=== PATIENT | female | born 1960 | race Asian ===

== ENCOUNTER 2019-10-23 09:41 | Emergency (ER) | payer MEDICAID, OTHER ==
[2019-10-23 09:49] VITALS: BP 166/73
[2019-10-23] MEDS ORDERED: SILVER SULFADIAZINE 1 % TOPICAL CREAM 50GM TOP ONE (10:15)
[2019-10-23] MEDS ORDERED: ACETAMINOPHEN 325 MG TAB PO ONE (10:15)
== END 2019-10-23 10:53 | disposition home or self-care (01) ==
LOC: ER 09:46
DX: T22.211A Burn of second degree of right forearm, initial encounter (principal); T23.171A Burn of first degree of right wrist, initial encounter; T31.0 Burns involving less than 10% of body surface; X10.0XXA Contact with hot drinks, initial encounter; Y93.89 Activity, other specified; Y92.090 Kitchen in other non-institutional residence as the place of occurrence of the external cause; Y99.8 Other external cause status
CPT/HCPCS: 16020

== ENCOUNTER 2020-02-12 19:10 | Emergency (ER) | payer MEDICAID, OTHER ==
[~2020-02-12] VITALS: Ht 157.5 cm; Wt 59.0 kg
[2020-02-12] MEDS ORDERED: methylPREDNISolone SOD SUCC 125 MG/2 ML VL IV ONE (19:30)
[2020-02-12 20:23] LABS: Basophils # (auto) 0 10 ^3/uL (0-0.2); Basophils % (auto) 0.3 % (0.0-2.0); Eosinophils # (auto) 0.1 10 ^3/uL (0-0.8); Eosinophils % (auto) 2.2 % (0.0-7.0); Hematocrit 35.4 % (36.0-46.0); Hemoglobin 12.1 g/dL (12.2-16.2); Lymphocytes # (auto) 1.1 10 ^3/uL (0.4-5.4); Mean Corpuscular Hemoglobin 33.4 pg (28.0-32.0); Mean Corpuscular Hgb Conc. 34.1 g/dL (32.0-36.0); Mean Corpuscular Volume 98.1 fL (80.0-100.0); Monocytes # (auto) 0.3 10 ^3/uL (0-1.3); Monocytes % (auto) 7.6 % (0.0-12.0); Neutrophils # (auto) 2.8 10 ^3/uL (1.6-8.6); Neutrophils % (auto) 63.9 % (37.0-80.0); Platelet Count (auto) 316 10^3/uL (140-450); Red Blood Cells 3.61 10^6/uL (4.0-5.20); Red Cell Distribution Width 12.3 % (11.8-14.3); White Blood Cell 4.4 10^3/uL (4.4-10.8)
[2020-02-12 20:33] LABS: INR 0.95 (0.9-1.15); Partial Thromboplastin Time 29.3 sec (23.64-32.05)
[2020-02-12 20:34] LABS: Alanine Aminotransferase 16 U/L (13-56); Albumin 3.4 g/dL (3.4-5.0); Anion Gap 9 (5-15); Aspartate Aminotransferase 16 U/L (15-37); BUN/Creatinine Ratio 11.7; Blood Urea Nitrogen 9 mg/dL (7-18); Calcium 8.8 mg/dL (8.5-10.1); Carbon Dioxide 24 mmol/L (21-32); Chloride 97 mmol/L (98-107); GFR African American 98 mL/min; GFR Non-African American 81 mL/min; Glucose 161 mg/dL (74-106); Magnesium 1.9 mg/dL (1.6-2.6); Potassium 4.2 mmol/L (3.5-5.1); Sodium 130 mmol/L (136-145)
[2020-02-12 20:39] LABS: Alkaline Phosphatase 73 U/L (45-117); Bilirubin, Total 0.2 mg/dL (0.2-1.0); Total Protein 8.2 g/dL (6.4-8.2)
[2020-02-13 01:00] VITALS: BP 109/58
== END 2020-02-13 01:18 | disposition home or self-care (01) ==
LOC: ER 19:10 → EDBD 19:10 → EDUNIT# 19:10 → ER 02-13 01:18
DX: J98.01 Acute bronchospasm (principal); G89.22 Chronic post-thoracotomy pain; E11.9 Type 2 diabetes mellitus without complications; I10 Essential (primary) hypertension
CPT/HCPCS: 36415; 71046; 71250; 80053; 83735; 83880; 84484; 85025; 85379; 85610; 85730; 93005; 96374; 99285; J2930

== ENCOUNTER 2020-08-18 21:17 | Inpatient (IN) | payer MEDICAID ==
[~2020-08-18] VITALS: Ht 162.6 cm; Wt 45.4 kg
[2020-08-18 22:29] LABS: Basophils # (auto) 0 10 ^3/uL (0-0.2); Eosinophils # (auto) 0.1 10 ^3/uL (0-0.8); Hemoglobin 10.8 g/dL (12.2-16.2); Lymphocytes # (auto) 1.7 10 ^3/uL (0.4-5.4); Monocytes # (auto) 0.5 10 ^3/uL (0-1.3); Red Cell Distribution Width 12.1 % (11.8-14.3)
[2020-08-18 22:31] LABS: Basophils % (auto) 0.4 % (0.0-2.0); Eosinophils % (auto) 2.1 % (0.0-7.0); Hematocrit 31.1 % (36.0-46.0); Mean Corpuscular Hemoglobin 33.4 pg (28.0-32.0); Mean Corpuscular Hgb Conc. 34.7 g/dL (32.0-36.0); Mean Corpuscular Volume 96.3 fL (80.0-100.0); Monocytes % (auto) 10.3 % (0.0-12.0); Neutrophils # (auto) 2.9 10 ^3/uL (1.6-8.6); Neutrophils % (auto) 55.2 % (37.0-80.0); Nucleated Red Blood Cells % 0.2 %; Platelet Count (auto) 552 10^3/uL (140-450); Red Blood Cells 3.23 10^6/uL (4.0-5.20); White Blood Cell 5.2 10^3/uL (4.4-10.8)
[2020-08-18 22:44] LABS: INR 0.93 (0.9-1.15); Partial Thromboplastin Time 30.9 sec (23.0-31.2)
[2020-08-18 22:50] LABS: Alanine Aminotransferase 18 U/L (13-56); Albumin 3.3 g/dL (3.4-5.0); Anion Gap 6 (5-15); Aspartate Aminotransferase 16 U/L (15-37); BUN/Creatinine Ratio 10.9; Blood Urea Nitrogen 7 mg/dL (7-18); Calcium 9.3 mg/dL (8.5-10.1); Carbon Dioxide 29 mmol/L (21-32); Chloride 92 mmol/L (98-107); GFR African American 121 mL/min; GFR Non-African American 100 mL/min; Glucose 121 mg/dL (74-106); Magnesium 2.2 mg/dL (1.6-2.6); Potassium 5.1 mmol/L (3.5-5.1); Sodium 127 mmol/L (136-145)
[2020-08-18 22:55] LABS: Alkaline Phosphatase 84 U/L (45-117); Bilirubin, Total 0.2 mg/dL (0.2-1.0); Total Protein 8.1 g/dL (6.4-8.2)
[2020-08-19] VITALS (7 sets, daily range): BP systolic 115–131; BP diastolic 73–83
[2020-08-19] MEDS ORDERED: IPRATROPIUM BROM 0.5 MG/2.5ML INH SOL NEB ONE (00:15)
[2020-08-19] MEDS ORDERED: ALBUTEROL SULF 2.5 MG/0.5ML(0.5%) NEB SOLN NEB ONE (00:15)
[2020-08-19] MEDS ORDERED: methylPREDNISolone SOD SUCC 125 MG/2 ML VL IV ONE (00:15)
[2020-08-19] MEDS ORDERED: ONDANSETRON HCL 4 MG/2 ML VIAL IV PRN (00:30)
[2020-08-19] MEDS ORDERED: DEXTROSE (50%) 50ML SYRG IV PRN ×2 (00:45→15:30)
[2020-08-19] MEDS ORDERED: ISAV1CAP2 PO (04:06)
[2020-08-19] MEDS ORDERED: BENA-30 PO (04:06)
[2020-08-19] MEDS ORDERED: MONT10TA34 PO (04:06)
[2020-08-19] MEDS ORDERED: SIMV10TA84 PO (04:06)
[2020-08-19] MEDS ORDERED: METF-370 PO (04:06)
[2020-08-19] MEDS ORDERED: ALBU108A5 IN (04:06)
[2020-08-19] MEDS ORDERED: HYDR-4924 PO (04:06)
[2020-08-19] MEDS: ACCU-CHEK COMFORT CURVE STRIP VI SCH ×4 (06:28→21:17)
[2020-08-19] MEDS: InsuLIN REG 1unit/0.01ml Soln (100units/ml) SC SCH ×4 (06:40→21:19)
[2020-08-19] MEDS: ALBUTEROL SULF 2.5 MG/0.5ML(0.5%) NEB SOLN NEB SCH ×4 (07:32→23:03)
[2020-08-19] MEDS: IPRATROPIUM BROM 0.5 MG/2.5ML INH SOL NEB SCH ×4 (07:32→23:03)
[2020-08-19] MEDS: ACETAMINOPHEN 325 MG TAB PO PRN ×2 (07:54→20:21)
[2020-08-19] MEDS: FAMOTIDINE 20 MG TAB PO SCH ×2 (09:17→21:17)
[2020-08-19] MEDS: ENOXAPARIN SOD 40 MG/0.4 ML SYRINGE SC SCH (09:18)
[2020-08-19] MEDS ORDERED: methylPREDNISolone SOD SUCC 125 MG/2 ML VL IV SCH ×2 (10:00→22:00)
[2020-08-19] MEDS ORDERED: ALBUTEROL SULF 2.5 MG/0.5ML(0.5%) NEB SOLN NEB PRN (15:30)
[2020-08-19] MEDS ORDERED: levoFLOXacin 500MG 100 ML IV ONE (17:15)
[2020-08-19] MEDS: MONTELUKAST SODIUM 10 MG TAB PO SCH (21:17)
[2020-08-20] MEDS: ALBUTEROL SULF 2.5 MG/0.5ML(0.5%) NEB SOLN NEB SCH ×6 (02:21→23:13)
[2020-08-20] MEDS: IPRATROPIUM BROM 0.5 MG/2.5ML INH SOL NEB SCH ×6 (02:21→23:13)
[2020-08-20 05:00] VITALS: BP 134/73
[2020-08-20] MEDS: InsuLIN REG 1unit/0.01ml Soln (100units/ml) SC SCH ×5 (06:21→22:00)
[2020-08-20] MEDS: ACCU-CHEK COMFORT CURVE STRIP VI SCH ×4 (06:21→21:13)
[2020-08-20 06:29] LABS: Basophils # (auto) 0 10 ^3/uL (0-0.2); Basophils % (auto) 0.1 % (0.0-2.0); Eosinophils # (auto) 0 10 ^3/uL (0-0.8); Eosinophils % (auto) 0.1 % (0.0-7.0); Hemoglobin 10.2 g/dL (12.2-16.2); Neutrophils # (auto) 6.2 10 ^3/uL (1.6-8.6); Neutrophils % (auto) 80.3 % (37.0-80.0)
[2020-08-20 06:31] LABS: Hematocrit 29.5 % (36.0-46.0); Lymphocytes % (auto) 13.4 % (10.0-50.0); Mean Corpuscular Hemoglobin 33.4 pg (28.0-32.0); Mean Corpuscular Hgb Conc. 34.6 g/dL (32.0-36.0); Mean Corpuscular Volume 96.7 fL (80.0-100.0); Monocytes # (auto) 0.5 10 ^3/uL (0-1.3); Monocytes % (auto) 6.1 % (0.0-12.0); Platelet Count (auto) 531 10^3/uL (140-450); Red Blood Cells 3.05 10^6/uL (4.0-5.20); Red Cell Distribution Width 11.9 % (11.8-14.3); White Blood Cell 7.7 10^3/uL (4.4-10.8)
[2020-08-20 06:36] LABS: Magnesium 2.2 mg/dL (1.6-2.6)
[2020-08-20 06:38] LABS: Calcium 9.1 mg/dL (8.5-10.1); Potassium 4.4 mmol/L (3.5-5.1)
[2020-08-20 06:40] LABS: BUN/Creatinine Ratio 18.5
[2020-08-20 09:00] VITALS: BP 125/77
[2020-08-20] MEDS: ENOXAPARIN SOD 40 MG/0.4 ML SYRINGE SC SCH (10:05)
[2020-08-20] MEDS: methylPREDNISolone SOD SUCC 40 MG/ML VL IV SCH (10:05)
[2020-08-20] MEDS: levoFLOXacin 500MG 100 ML IV SCH (10:05)
[2020-08-20] MEDS: FAMOTIDINE 20 MG TAB PO SCH ×2 (10:05→21:13)
[2020-08-20 13:00] VITALS: BP 141/81
[2020-08-20] MEDS: MONTELUKAST SODIUM 10 MG TAB PO SCH (21:13)
[2020-08-20] MEDS: TEMAZEPAM 15 MG CAP PO PRN (21:13)
[2020-08-20 22:00] VITALS: BP 143/87
[2020-08-20] MEDS ORDERED: HYDROcodone-ACET 5/325MG TAB PO PRN (22:30)
[2020-08-21] MEDS: ALBUTEROL SULF 2.5 MG/0.5ML(0.5%) NEB SOLN NEB SCH ×6 (02:11→22:41)
[2020-08-21] MEDS: IPRATROPIUM BROM 0.5 MG/2.5ML INH SOL NEB SCH ×6 (02:11→22:41)
[2020-08-21 05:00] VITALS: BP 129/75
[2020-08-21] MEDS: InsuLIN REG 1unit/0.01ml Soln (100units/ml) SC SCH ×4 (06:01→21:29)
[2020-08-21] MEDS: ACCU-CHEK COMFORT CURVE STRIP VI SCH ×4 (06:01→21:29)
[2020-08-21 07:05] LABS: BUN/Creatinine Ratio 25.6; Calcium 9.5 mg/dL (8.5-10.1); Potassium 4.2 mmol/L (3.5-5.1)
[2020-08-21 08:00] VITALS: BP 111/61
[2020-08-21] MEDS: ENOXAPARIN SOD 40 MG/0.4 ML SYRINGE SC SCH (10:00)
[2020-08-21] MEDS: levoFLOXacin 500MG 100 ML IV SCH (10:03)
[2020-08-21] MEDS: FAMOTIDINE 20 MG TAB PO SCH (10:03)
[2020-08-21] MEDS: methylPREDNISolone SOD SUCC 40 MG/ML VL IV SCH (10:03)
[2020-08-21] MEDS ORDERED: PANTOPRAZOLE 40 MG TAB PO ONE (12:45)
[2020-08-21 13:03] VITALS: BP 134/73
[2020-08-21] MEDS: NEOMYCIN-POLYM-HC 1% OTIC(EAR) SOLN 10ML EACH EAR SCH ×2 (17:04→21:28)
[2020-08-21 17:15] VITALS: BP 112/71
[2020-08-21 20:48] VITALS: BP 112/71
[2020-08-21] MEDS: MONTELUKAST SODIUM 10 MG TAB PO SCH (21:29)
[2020-08-21] MEDS: PANTOPRAZOLE 40 MG TAB PO SCH (21:29)
[2020-08-21] MEDS: TEMAZEPAM 15 MG CAP PO PRN (21:30)
[2020-08-21 22:00] VITALS: BP 127/81
[2020-08-22] MEDS: IPRATROPIUM BROM 0.5 MG/2.5ML INH SOL NEB SCH ×6 (02:25→22:00)
[2020-08-22] MEDS: ALBUTEROL SULF 2.5 MG/0.5ML(0.5%) NEB SOLN NEB SCH ×6 (02:25→22:00)
[2020-08-22 05:00] VITALS: BP 118/72
[2020-08-22] MEDS: ACCU-CHEK COMFORT CURVE STRIP VI SCH ×4 (06:01→21:18)
[2020-08-22] MEDS: NEOMYCIN-POLYM-HC 1% OTIC(EAR) SOLN 10ML EACH EAR SCH ×3 (06:01→21:17)
[2020-08-22] MEDS: InsuLIN REG 1unit/0.01ml Soln (100units/ml) SC SCH ×4 (06:04→21:20)
[2020-08-22 09:00] VITALS: BP 123/80
[2020-08-22] MEDS: ENOXAPARIN SOD 40 MG/0.4 ML SYRINGE SC SCH (10:00)
[2020-08-22] MEDS: methylPREDNISolone SOD SUCC 40 MG/ML VL IV SCH (10:33)
[2020-08-22] MEDS: levoFLOXacin 500MG 100 ML IV SCH (10:33)
[2020-08-22] MEDS: PANTOPRAZOLE 40 MG TAB PO SCH ×2 (10:37→21:17)
[2020-08-22 13:00] VITALS: BP 124/76
[2020-08-22 17:00] VITALS: BP 131/79
[2020-08-22 21:00] VITALS: BP 119/81
[2020-08-22] MEDS: MONTELUKAST SODIUM 10 MG TAB PO SCH (21:17)
[2020-08-22] MEDS: TEMAZEPAM 15 MG CAP PO PRN (21:17)
[2020-08-23] MEDS: IPRATROPIUM BROM 0.5 MG/2.5ML INH SOL NEB SCH ×6 (02:00→22:12)
[2020-08-23] MEDS: ALBUTEROL SULF 2.5 MG/0.5ML(0.5%) NEB SOLN NEB SCH ×6 (02:00→22:12)
[2020-08-23 05:00] VITALS: BP 110/66
[2020-08-23] MEDS: ACCU-CHEK COMFORT CURVE STRIP VI SCH ×4 (06:10→22:09)
[2020-08-23] MEDS: InsuLIN REG 1unit/0.01ml Soln (100units/ml) SC SCH ×5 (06:10→22:18)
[2020-08-23] MEDS: NEOMYCIN-POLYM-HC 1% OTIC(EAR) SOLN 10ML EACH EAR SCH ×3 (06:10→22:08)
[2020-08-23 06:25] LABS: Basophils # (auto) 0 10 ^3/uL (0-0.2); Basophils % (auto) 0.1 % (0.0-2.0); Eosinophils # (auto) 0 10 ^3/uL (0-0.8); Eosinophils % (auto) 0.3 % (0.0-7.0); Hemoglobin 10.9 g/dL (12.2-16.2); Lymphocytes # (auto) 1.3 10 ^3/uL (0.4-5.4); Monocytes # (auto) 0.5 10 ^3/uL (0-1.3); Monocytes % (auto) 8.5 % (0.0-12.0); Nucleated Red Blood Cells % 0.1 %
[2020-08-23 06:30] LABS: Potassium 4.1 mmol/L (3.5-5.1)
[2020-08-23 06:32] LABS: Hematocrit 31.7 % (36.0-46.0); Lymphocytes % (auto) 22.4 % (10.0-50.0); Mean Corpuscular Hemoglobin 33.5 pg (28.0-32.0); Mean Corpuscular Hgb Conc. 34.3 g/dL (32.0-36.0); Mean Corpuscular Volume 97.6 fL (80.0-100.0); Neutrophils # (auto) 4.1 10 ^3/uL (1.6-8.6); Neutrophils % (auto) 68.7 % (37.0-80.0); Platelet Count (auto) 516 10^3/uL (140-450); Red Blood Cells 3.25 10^6/uL (4.0-5.20); Red Cell Distribution Width 12.3 % (11.8-14.3); White Blood Cell 5.9 10^3/uL (4.4-10.8)
[2020-08-23 06:33] LABS: BUN/Creatinine Ratio 31.3; Magnesium 2.4 mg/dL (1.6-2.6)
[2020-08-23 09:00] VITALS: BP 128/85
[2020-08-23] MEDS: PANTOPRAZOLE 40 MG TAB PO SCH ×2 (11:43→22:09)
[2020-08-23] MEDS: ENOXAPARIN SOD 40 MG/0.4 ML SYRINGE SC SCH (11:43)
[2020-08-23] MEDS: predniSONE 20 MG TAB PO SCH (11:43)
[2020-08-23] MEDS: levoFLOXacin 500MG 100 ML IV SCH (11:44)
[2020-08-23 13:00] VITALS: BP 137/85
[2020-08-23] MEDS ORDERED: DEXTROSE (50%) 50ML SYRG IV PRN (14:30)
[2020-08-23 17:00] VITALS: BP 120/79
[2020-08-23 22:00] VITALS: BP 118/80
[2020-08-23] MEDS: MONTELUKAST SODIUM 10 MG TAB PO SCH (22:09)
[2020-08-24] MEDS: IPRATROPIUM BROM 0.5 MG/2.5ML INH SOL NEB SCH ×4 (02:12→14:12)
[2020-08-24] MEDS: ALBUTEROL SULF 2.5 MG/0.5ML(0.5%) NEB SOLN NEB SCH ×4 (02:12→14:12)
[2020-08-24] MEDS: NEOMYCIN-POLYM-HC 1% OTIC(EAR) SOLN 10ML EACH EAR SCH ×2 (05:59→13:28)
[2020-08-24 06:05] VITALS: BP 117/76
[2020-08-24] MEDS: InsuLIN REG 1unit/0.01ml Soln (100units/ml) SC SCH ×2 (06:18→12:34)
[2020-08-24] MEDS: ACCU-CHEK COMFORT CURVE STRIP VI SCH ×2 (06:20→12:15)
[2020-08-24 09:00] VITALS: BP 133/79
[2020-08-24] MEDS: levoFLOXacin 500MG 100 ML IV SCH (10:48)
[2020-08-24] MEDS: predniSONE 20 MG TAB PO SCH (10:48)
[2020-08-24] MEDS: PANTOPRAZOLE 40 MG TAB PO SCH (10:48)
[2020-08-24] MEDS: ENOXAPARIN SOD 40 MG/0.4 ML SYRINGE SC SCH (10:48)
[2020-08-24] MEDS ORDERED: LEVO500T21 PO (12:59)
[2020-08-24] MEDS ORDERED: PRED20TA2 PO (12:59)
[2020-08-24] MEDS ORDERED: PANT40TA2 PO (12:59)
[2020-08-24 13:00] VITALS: BP 131/85
[2020-08-24 15:39] VITALS: BP 131/85
[2020-08-24 16:17] VITALS: BP 113/70
== END 2020-08-24 16:45 | disposition home or self-care (01) | DRG 140 ==
LOC: EDBD 21:17 → ER 21:19 → OVERFLOW 21:20 → WEST WING 08-19 02:25
PROVIDERS: ADMIT Nurse Practitioner; ATTEND Internal Medicine
DX: J47.1 Bronchiectasis with (acute) exacerbation (principal); J96.21 Acute and chronic respiratory failure with hypoxia; E87.1 Hypo-osmolality and hyponatremia; E11.65 Type 2 diabetes mellitus with hyperglycemia; I10 Essential (primary) hypertension; E78.5 Hyperlipidemia, unspecified; K21.9 Gastro-esophageal reflux disease without esophagitis; K29.70 Gastritis, unspecified, without bleeding; Z20.828 Contact with and (suspected) exposure to other viral communicable diseases; E11.21 Type 2 diabetes mellitus with diabetic nephropathy; J45.901 Unspecified asthma with (acute) exacerbation; Z82.49 Family history of ischemic heart disease and other diseases of the circulatory system; Z83.3 Family history of diabetes mellitus
CPT/HCPCS: 36415; 36600; 71045; 71250; 80048; 80053; 80061; 82805; 82962; 83036; 83735; 83880; 84484; 85025; 85379; 85610; 85730; 93970; 94640; 97110; 97116; 97530; G0378; J1815; J1956